=== PATIENT | male | born 1940 | race Caucasian/White ===

== ENCOUNTER 2020-03-27 09:03 | Inpatient (IN) | payer OTHER ==
[~2020-03-27] VITALS: Ht 188 cm; Wt 85.5 kg
[2020-03-27] VITALS (10 sets, daily range): BP systolic 105–126; BP diastolic 54–90; BMI 19.9
[2020-03-27 10:43] LABS: BASOPHILS 0.1 % (0-2); EOSINOPHILS 0 % (0-7); HEMATOCRIT 49.9 % (42.0-54.0); HEMOGLOBIN 15.5 g/dL (13.5-17.5); IMMATURE GRANULOCYTES 0.7 % (0-5); LYMPHOCYTES 6.6 % (15-50); MCH 31.1 pg (26.0-34.0); MCHC 31.1 g/dL (31.0-37.0); MCV 100.2 fL (80.0-100.0); MEAN PLATELET VOLUME 12.4 fL (7.4-10.4); NEUTROPHILS 88.6 % (40-80); PLATELET COUNT 215 10x3/uL (130-400); RBC 4.98 10x6/uL (4.20-6.10); RDW 13.7 % (11.5-14.5)
[2020-03-27 10:52] LABS: INR 1.5 (0.85-1.17)
[2020-03-27 10:54] LABS: CALCIUM 9.2 mg/dL (8.5-10.1); CARBON DIOXIDE 26.1 mmol/L (21.0-32.0); CHLORIDE - SERUM 104 mmol/L (98-107); CREATININE - SERUM 2.6 mg/dL (0.6-1.3); POTASSIUM - SERUM 4.8 mmol/L (3.5-5.1); SODIUM 145 mmol/L (136-145); eGFR NON AFRICAN AMERICAN 25 mL/min (90-120)
[2020-03-27 11:12] LABS: ALBUMIN 2.7 g/dL (3.4-5.0); ALKALINE PHOSPHATASE 80 U/L (30-120); ALT (SGPT) 17 U/L (10-68); BILIRUBIN - TOTAL 0.95 mg/dL (0.2-1.3); CKMB 2.4 U/L (0.0-3.6); CREATINE KINASE 62 UL (21-232); PROTEIN - SERUM 7.4 g/dL (6.4-8.2)
[2020-03-27 11:13] LABS: CALC OSMOLALITY 359 mosm/kg (275-300)
[2020-03-27 11:29] LABS: GLUCOSE 784 mg/dL (74-106); UREA NITROGEN 105 mg/dL (7-18)
--- NOTE | 2020-03-27 11:32 | NUR ---
CRITICAL LAB: BUN 105, TROPONIN 0.27 GLUCOSE 784 [address] 3.2 DR MAXWELL AND APRIL, RN NOTIFIED
[2020-03-27 11:42] LABS: BILIRUBIN NEGATIVE (NEGATIVE); KETONE NEGATIVE (NEGATIVE); NITRITE NEGATIVE (NEGATIVE); UROBILINOGEN NORMAL mg/dL (< 2)
[2020-03-27 11:46] LABS: AMORPHOUS SEDIMENT <1+ LPF (NONE SEEN); BACTERIA MODERATE HPF (NONE SEEN)
[2020-03-27 11:47] LABS: WHITE CELLS - URINE 0-5 HPF (0-1)
--- NOTE | 2020-03-27 15:47 | NUR ---
20 G R FA IV X 1 ATTEMPT STARTED BY JESUS MACHADO.
[2020-03-27 18:11] LABS: CKMB 4.8 U/L (0.0-3.6); CREATINE KINASE 156 UL (21-232)
[2020-03-27 23:23] LABS: CKMB 5.1 U/L (0.0-3.6); CREATINE KINASE 160 UL (21-232)
[2020-03-27 23:27] LABS: CARBON DIOXIDE 30.2 mmol/L (21.0-32.0); CREATININE - SERUM 2.4 mg/dL (0.6-1.3)
[2020-03-27 23:29] LABS: ANION GAP 12.5 mmol/L (8-16); POTASSIUM - SERUM 3.7 mmol/L (3.5-5.1); TROPONIN-I 0.546 ng/mL (0.000-0.060)
[2020-03-28] VITALS (17 sets, daily range): BP systolic 92–141; BP diastolic 69–91; BMI 21.0
[2020-03-28 05:29] LABS: HEMATOCRIT 47.5 % (42.0-54.0); HEMOGLOBIN 15.2 g/dL (13.5-17.5); LYMPHOCYTES 5.7 % (15-50); MEAN PLATELET VOLUME 12.6 fL (7.4-10.4); NEUTROPHILS 89.3 % (40-80); PLATELET COUNT 199 10x3/uL (130-400); RBC 4.91 10x6/uL (4.20-6.10); RDW 13.6 % (11.5-14.5); WBC 11.2 10x3/uL (4.8-10.8)
[2020-03-28 05:32] LABS: MCV 96.7 fL (80.0-100.0)
[2020-03-28 05:40] LABS: ALBUMIN 2.3 g/dL (3.4-5.0); ALKALINE PHOSPHATASE 60 U/L (30-120); ALT (SGPT) 18 U/L (10-68); BILIRUBIN - TOTAL 0.65 mg/dL (0.2-1.3); CALCIUM 8.1 mg/dL (8.5-10.1); CKMB 4.4 U/L (0.0-3.6); CREATINE KINASE 142 UL (21-232); CREATININE - SERUM 2.3 mg/dL (0.6-1.3); LDH 507 U/L (85-227); PROTEIN - SERUM 5.8 g/dL (6.4-8.2); SODIUM 155 mmol/L (136-145); eGFR NON AFRICAN AMERICAN 29 mL/min (90-120)
[2020-03-28 06:06] LABS: C-REACTIVE PROTEIN 16.8 mg/dL (0.0-0.9)
[2020-03-28 06:08] LABS: CALC OSMOLALITY 348 mosm/kg (275-300); FERRITIN 1831 ng/mL (3-244); GLUCOSE 248 mg/dL (74-106); POTASSIUM - SERUM 4.8 mmol/L (3.5-5.1); TROPONIN-I 0.389 ng/mL (0.000-0.060)
[2020-03-28 06:09] LABS: CHLORIDE - SERUM 118 mmol/L (98-107); UREA NITROGEN 109 mg/dL (7-18)
--- NOTE | 2020-03-28 07:19 | NUR ---
CONSULTED DR ROLAND PER DR CHAVEZ. INFORMED [facility] ON LAB. NO NEW ORDERS AT THIS TIME.
[2020-03-29] VITALS (23 sets, daily range): BP systolic 101–1124; BP diastolic 60–91; Ht 188 cm; Wt 85.5 kg
[2020-03-29 04:22] LABS: BASOPHILS 0.1 % (0-2); EOSINOPHILS 0 % (0-7); HEMOGLOBIN 15.7 g/dL (13.5-17.5); IMMATURE GRANULOCYTES 0.4 % (0-5); LYMPHOCYTES 3.3 % (15-50); MCH 31.2 pg (26.0-34.0); MCV 97.4 fL (80.0-100.0); MEAN PLATELET VOLUME 12.4 fL (7.4-10.4); MONOCYTES 2.4 % (2-11); NEUTROPHILS 93.8 % (40-80); PLATELET COUNT 236 10x3/uL (130-400); RBC 5.03 10x6/uL (4.20-6.10)
[2020-03-29 04:33] LABS: WBC 14.7 10x3/uL (4.8-10.8)
[2020-03-29 04:55] LABS: ALBUMIN 2.6 g/dL (3.4-5.0); BILIRUBIN - TOTAL 0.71 mg/dL (0.2-1.3); CALCIUM 9.7 mg/dL (8.5-10.1); CARBON DIOXIDE 27.5 mmol/L (21.0-32.0); POTASSIUM - SERUM 4.5 mmol/L (3.5-5.1)
[2020-03-29 05:41] LABS: CREATININE - SERUM 3.4 mg/dL (0.6-1.3); PROTEIN - SERUM 7.5 g/dL (6.4-8.2)
--- NOTE | 2020-03-29 05:59 | NUR ---
RECEIVED CRITICAL LAB BUN CL NA. DR CHAVEZ MADE AWARE. NEW ORDER OF 1/2NS AT 100ML/HR AND NEPHROLOGY CONSULT RECEIVED.
--- NOTE | 2020-03-29 07:13 | NUR ---
DR HAMEED MADE AWARE OF THE CONSULT
--- NOTE | 2020-03-29 09:08 | EC ---
PATIENT:KAMERON HALL DATE OF SERVICE: 03/27/20 SEX: M MEDICAL RECORD: [id number] DATE OF : 40 LOCATION:[facility] AGE OF PATIENT: 79 ADMISSION DATE: 03/27/20 REFERRING PHYSICIAN: INTERPRETING PHYSICIAN: TI ROLAND MD ECHOCARDIOGRAM REPORT ECHO CHARGES 4 ECHO COMPLETE Date: 03/28/20 CLINICAL DIAGNOSIS: SOB ECHOCARDIOGRAPHIC MEASUREMENTS (adult normal given) AC root (d.<3.7cm) 3.6 cm LV Septum d (<1.2 cm> 1.6 cm Valve Excursion cm LV Septum (systole) 2.0 cm Left Atria (s.<4.0cm> 5.3 cm LVPW d(<1.2cm) 1.4 cm RV (d.<2.3cm) 4.2 cm LVPW (sytole) 1.7 cm LV diastole(<5.6CM) 4.8 cm MV E-F(>70mm/sec) cm LV systole 4.0 cm LVOT Diameter 2.0 cm MV exc.(>10mm) cm Est.ejection fraction (50-75%) 30 % DOPPLER: LVIT cm/sec A cm/sec E cm/sec LA cm/sec RVSP 29 mmHg LVOT cm/sec AOP1/2T m/s Asc. Ao cm/sec RVOT cm/sec RA cm/sec PA cm/sec AV Gradient Peak mmHg AV Mean mmHg AV Area cm MV Gradient Peak mmHg MV Mean mmHg MV Area cm COMMENTS: Make Ready Mechanic: Rn Ortho: 3 Dr. Sarmiento TAPE# PACS Pericardial Effusion N DATE OF SERVICE: 03/28/2020 Adequate 2D, color flow imaging, spectral Doppler, and M-Mode. LVH is present. LV internal dimensions are normal. LV is mildly globally hypo with EF mildly reduced 30% to 35%. Aortic valve is tricuspid. No evidence of stenosis by Doppler interrogation. Left atrium is dilated at 5.3. 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 Right-sided chambers are grossly normal. Mild TR. 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
[2020-03-29 12:46] LABS: CALCIUM 8.2 mg/dL (8.5-10.1); CARBON DIOXIDE 25.4 mmol/L (21.0-32.0); CREATININE - SERUM 3.2 mg/dL (0.6-1.3)
[2020-03-29 12:53] LABS: ANION GAP 17.6 mmol/L (8-16)
--- NOTE | 2020-03-29 12:54 | NUR ---
Nutrition Follow-up: Pt in droplet isolation; covid-19+. On bipap. Remains NPO. Wt: 164.2# (03/29) Labs noted: Na 160, Glu 225, Alb 2.6 Meds noted: Humalog, Lantus, Pepcid, 1/2NS @ 100 -If pt to remain NPO, rec consider nutrition support as medically feasible. -RD following.
--- NOTE | 2020-03-29 15:11 | NUR ---
FIO2 45%
[2020-03-29 20:06] LABS: CARBON DIOXIDE 20.6 mmol/L (21.0-32.0); CREATININE - SERUM 2.8 mg/dL (0.6-1.3)
[2020-03-29 20:10] LABS: ANION GAP 15.6 mmol/L (8-16); POTASSIUM - SERUM 3.2 mmol/L (3.5-5.1)
[2020-03-29 20:12] LABS: CALCIUM 6.7 mg/dL (8.5-10.1)
--- NOTE | 2020-03-29 23:41 | NUR ---
PT DAUGHTER CALLED, PASSWORD PROVIDED, UPDATE GIVEN AND ALL QUESTIONS ANSWERED.
[2020-03-30] VITALS (24 sets, daily range): BP systolic 102–125; BP diastolic 57–83
[2020-03-30 04:11] LABS: ANION GAP 15.3 mmol/L (8-16); CALCIUM 9.1 mg/dL (8.5-10.1); CARBON DIOXIDE 26.5 mmol/L (21.0-32.0); POTASSIUM - SERUM 3.8 mmol/L (3.5-5.1)
--- NOTE | 2020-03-30 07:00 | NUR ---
LETHERGIC. RESPONSE TO PAINFUL STIMUL. ON BIPAP 08/01 AT 45%.IV LEFT WRIST INFUSING WITH 1/2 NS AT 125 ML HOUR. GUERRERO CATH PATENT DARK JOSE URINE IN GUERRERO BAG. MONITOR SR WITH OCC PVC AND PAC. HEAD OF BED ELEVATED 30 DEGREES.
--- NOTE | 2020-03-30 09:51 | NUR ---
FAMILY UPDATE ON PATIENT
[2020-03-30 15:08] LABS: ANION GAP 19.3 mmol/L (8-16); CALCIUM 8.7 mg/dL (8.5-10.1); CARBON DIOXIDE 22.9 mmol/L (21.0-32.0); CREATININE - SERUM 2.9 mg/dL (0.6-1.3); MAGNESIUM - SERUM 2.5 mg/dL (1.8-2.4); POTASSIUM - SERUM 4.2 mmol/L (3.5-5.1)
--- NOTE | 2020-03-30 18:00 | NUR ---
BIPAP AT 40% . NO CHANGE IN MENTAL STATUS. IV PATENT. URINE STILL DARK JOSE
--- NOTE | 2020-03-30 19:32 | NUR ---
PT DAUGHTER CALLED, PASSWORD PROVIDED, UPDATE GIVEN.
[2020-03-31] VITALS (24 sets, daily range): BP systolic 112–137; BP diastolic 68–82
[2020-03-31 09:36] LABS: BASOPHILS 0.1 % (0-2); EOSINOPHILS 0.9 % (0-7); HEMATOCRIT 42.1 % (42.0-54.0); IMMATURE GRANULOCYTES 0.4 % (0-5); LYMPHOCYTES 4.2 % (15-50); MCH 30.4 pg (26.0-34.0); MCHC 30.9 g/dL (31.0-37.0); MCV 98.6 fL (80.0-100.0); MEAN PLATELET VOLUME 12.3 fL (7.4-10.4); MONOCYTES 3.2 % (2-11); NEUTROPHILS 91.2 % (40-80); RBC 4.27 10x6/uL (4.20-6.10); RDW 14.5 % (11.5-14.5); WBC 10.5 10x3/uL (4.8-10.8)
[2020-03-31 09:38] LABS: PLATELET COUNT 187 10x3/uL (130-400)
[2020-03-31 09:58] LABS: ALBUMIN 1.9 g/dL (3.4-5.0); ANION GAP 13.5 mmol/L (8-16); BILIRUBIN - TOTAL 0.62 mg/dL (0.2-1.3); CALCIUM 8.9 mg/dL (8.5-10.1); CARBON DIOXIDE 25.1 mmol/L (21.0-32.0); CREATININE - SERUM 2.9 mg/dL (0.6-1.3); MAGNESIUM - SERUM 2.7 mg/dL (1.8-2.4); PHOSPHOROUS 3.1 mg/dL (2.5-4.9); POTASSIUM - SERUM 3.6 mmol/L (3.5-5.1); PROTEIN - SERUM 6.5 g/dL (6.4-8.2)
[2020-03-31 18:37] LABS: ANION GAP 15.2 mmol/L (8-16); CALCIUM 8.3 mg/dL (8.5-10.1); CARBON DIOXIDE 23.5 mmol/L (21.0-32.0); CREATININE - SERUM 2.7 mg/dL (0.6-1.3); POTASSIUM - SERUM 3.7 mmol/L (3.5-5.1)
[2020-04-01] VITALS (25 sets, daily range): BP systolic 108–144; BP diastolic 68–91
[2020-04-01 05:14] LABS: ANION GAP 11.1 mmol/L (8-16); CALCIUM 8.2 mg/dL (8.5-10.1); CARBON DIOXIDE 27.4 mmol/L (21.0-32.0); CREATININE - SERUM 2.4 mg/dL (0.6-1.3); MAGNESIUM - SERUM 2.4 mg/dL (1.8-2.4); PHOSPHOROUS 3.2 mg/dL (2.5-4.9); POTASSIUM - SERUM 3.5 mmol/L (3.5-5.1)
[2020-04-01 05:20] LABS: BASOPHILS 0.1 % (0-2); EOSINOPHILS 1.7 % (0-7); HEMATOCRIT 41.1 % (42.0-54.0); HEMOGLOBIN 12.7 g/dL (13.5-17.5); IMMATURE GRANULOCYTES 0.4 % (0-5); LYMPHOCYTES 4.1 % (15-50); MCH 30.7 pg (26.0-34.0); MCHC 30.9 g/dL (31.0-37.0); MCV 99.3 fL (80.0-100.0); MEAN PLATELET VOLUME 12.7 fL (7.4-10.4); MONOCYTES 3.3 % (2-11); NEUTROPHILS 90.4 % (40-80); PLATELET COUNT 184 10x3/uL (130-400); RBC 4.14 10x6/uL (4.20-6.10); RDW 14.5 % (11.5-14.5); WBC 8.5 10x3/uL (4.8-10.8)
--- NOTE | 2020-04-01 12:28 | NUR ---
Nutrition follow-up: Pt continues NPO; unresponsive BIPAP in place Labs reviewed Per airconditioning engineer, renal function is improving with good urine output at this time Will need nutrition support started when medically feasible RDN following.
[2020-04-02] VITALS (24 sets, daily range): BP systolic 106–134; BP diastolic 56–87
[2020-04-02 05:15] LABS: BASOPHILS 0.1 % (0-2); EOSINOPHILS 1.5 % (0-7); HEMATOCRIT 42.6 % (42.0-54.0); HEMOGLOBIN 12.9 g/dL (13.5-17.5); IMMATURE GRANULOCYTES 0.4 % (0-5); LYMPHOCYTES 5.1 % (15-50); MCH 30.4 pg (26.0-34.0); MCHC 30.3 g/dL (31.0-37.0); MCV 100.2 fL (80.0-100.0); MEAN PLATELET VOLUME 12.7 fL (7.4-10.4); MONOCYTES 3.5 % (2-11); NEUTROPHILS 89.4 % (40-80); PLATELET COUNT 164 10x3/uL (130-400); RBC 4.25 10x6/uL (4.20-6.10); RDW 14.3 % (11.5-14.5); WBC 8.2 10x3/uL (4.8-10.8)
[2020-04-02 05:31] LABS: ANION GAP 11.9 mmol/L (8-16); CALCIUM 8.5 mg/dL (8.5-10.1); CARBON DIOXIDE 27.5 mmol/L (21.0-32.0); PHOSPHOROUS 3.3 mg/dL (2.5-4.9); POTASSIUM - SERUM 3.4 mmol/L (3.5-5.1)
--- NOTE | 2020-04-02 06:55 | NUR ---
Pt resting in bed, no acute distress noted. Pt was bathed and cleaned and changed. Assessment per flow sheet, BiPap on, call light in reach, bed in low position.
--- NOTE | 2020-04-02 14:56 | NUR ---
Nutrition Follow-up: Received consult from Dr. Solitario to start ProcalAmine or NGT feedings. Patient still with BiPAP in place so unable to NGT feed at this time. Will start ProCalamine @ 50mL/hr. This will provide: 294cal and 35gms protein and meets only ~15% of calorie needs and ~50% of protein needs. Long-term patient will need more nutrition. RD following.
[2020-04-03] VITALS (23 sets, daily range): BP systolic 90–129; BP diastolic 59–93
[2020-04-03 05:01] LABS: ANION GAP 13.6 mmol/L (8-16); BASOPHILS 0.1 % (0-2); CALCIUM 8.3 mg/dL (8.5-10.1); CARBON DIOXIDE 25.6 mmol/L (21.0-32.0); CREATININE - SERUM 1.9 mg/dL (0.6-1.3); EOSINOPHILS 1.2 % (0-7); IMMATURE GRANULOCYTES 0.4 % (0-5); LYMPHOCYTES 5.1 % (15-50); MCH 30.8 pg (26.0-34.0); MCHC 31.6 g/dL (31.0-37.0); MEAN PLATELET VOLUME 12.7 fL (7.4-10.4); MONOCYTES 1.9 % (2-11); NEUTROPHILS 91.3 % (40-80); PLATELET COUNT 159 10x3/uL (130-400); POTASSIUM - SERUM 3.2 mmol/L (3.5-5.1); RBC 3.89 10x6/uL (4.20-6.10); RDW 13.8 % (11.5-14.5)
[2020-04-03 05:02] LABS: MCV 97.7 fL (80.0-100.0); WBC 10.9 10x3/uL (4.8-10.8)
[2020-04-03 05:09] LABS: PHOSPHOROUS 2.4 mg/dL (2.5-4.9)
--- NOTE | 2020-04-03 13:23 | NUR ---
Nutrition Follow-up: Pt in droplet isolation; covid-19+. Bipap. Procal @ 50 mL/hr started yesterday. Diet: NPO Wt: 175.25# (04/03) Labs noted: Na 151, K+ 3.2, Glu 256, Ca 8.3, PO4 2.4 Meds noted: Lantus, Humalog, Pepcid, D5W @ 125 -Currently receiving Procal; if continues to need nutrition support, will need something more substantial. -RD following.
[2020-04-04] VITALS (24 sets, daily range): BP systolic 105–128; BP diastolic 69–90
[2020-04-04 04:33] LABS: BASOPHILS 0.1 % (0-2); EOSINOPHILS 1.3 % (0-7); HEMATOCRIT 33.1 % (42.0-54.0); HEMOGLOBIN 10.6 g/dL (13.5-17.5); IMMATURE GRANULOCYTES 0.4 % (0-5); LYMPHOCYTES 4.6 % (15-50); MCH 30.4 pg (26.0-34.0); MEAN PLATELET VOLUME 12.1 fL (7.4-10.4); MONOCYTES 2.4 % (2-11); NEUTROPHILS 91.2 % (40-80); PLATELET COUNT 167 10x3/uL (130-400); RBC 3.49 10x6/uL (4.20-6.10); RDW 13.8 % (11.5-14.5); WBC 11.4 10x3/uL (4.8-10.8)
[2020-04-04 04:47] LABS: ANION GAP 13.5 mmol/L (8-16); CALCIUM 8.1 mg/dL (8.5-10.1); CARBON DIOXIDE 20.7 mmol/L (21.0-32.0); CREATININE - SERUM 1.6 mg/dL (0.6-1.3); MCV 94.8 fL (80.0-100.0); POTASSIUM - SERUM 3.2 mmol/L (3.5-5.1)
--- NOTE | 2020-04-04 10:11 | NUR ---
ZITHROMAX STOPPED AT 1131 ON 03/27/20.
--- NOTE | 2020-04-04 10:58 | NUR ---
INTUBATED PER DR. LUNA BY ANESTHESIA. SIZE 8 TUBE PLACED 23 AT LIP. XR PENDING. FAMILY NOTIFIED PRIOR TO INTUBATING.
--- NOTE | 2020-04-04 12:00 | NUR ---
DR. CAMPO SEES PT DURING ROUNDS. ORDERS RECEIVED. POTASSIUM TO BE REPLETED PER OGT AFTER XR PLACEMENT CONFIRMS IT. AWAITING CVL PLACEMENT BEFORE XR ORDERS ENTERED. OBTAINED CONSENT PER FOR CVL.
[2020-04-05] VITALS (24 sets, daily range): BP systolic 87–149; BP diastolic 46–101
[2020-04-05 11:19] LABS: BASOPHILS 0.1 % (0-2); EOSINOPHILS 0.1 % (0-7); HEMATOCRIT 36.2 % (42.0-54.0); HEMOGLOBIN 11.4 g/dL (13.5-17.5); IMMATURE GRANULOCYTES 0.6 % (0-5); LYMPHOCYTES 3.5 % (15-50); MCH 30.6 pg (26.0-34.0); MCHC 31.5 g/dL (31.0-37.0); MEAN PLATELET VOLUME 12.3 fL (7.4-10.4); MONOCYTES 3.5 % (2-11); NEUTROPHILS 92.2 % (40-80); PLATELET COUNT 196 10x3/uL (130-400); RBC 3.73 10x6/uL (4.20-6.10); RDW 13.6 % (11.5-14.5)
[2020-04-05 11:25] LABS: WBC 17.4 10x3/uL (4.8-10.8)
[2020-04-05 11:27] LABS: MCV 97.1 fL (80.0-100.0)
[2020-04-05 11:29] LABS: ALBUMIN 1.4 g/dL (3.4-5.0); ANION GAP 15.7 mmol/L (8-16); BILIRUBIN - TOTAL 0.39 mg/dL (0.2-1.3); CALCIUM 8.3 mg/dL (8.5-10.1); CARBON DIOXIDE 19.8 mmol/L (21.0-32.0); PROTEIN - SERUM 6.2 g/dL (6.4-8.2)
[2020-04-05 11:31] LABS: CREATININE - SERUM 2.1 mg/dL (0.6-1.3); POTASSIUM - SERUM 5.5 mmol/L (3.5-5.1)
--- NOTE | 2020-04-05 13:01 | NUR ---
Nutrition Follow-up: Pt in droplet isolation; covid-19+. Intubated yesterday. Per pulm, plans for OGT and TF. Receiving Procal @ 50. Wt: 178# (04/04) Labs noted: K+ 5.5, Glu 129, Ca 8.3, Alb 1.4 Meds noted: Diprivan, Lantus, Humalog, Florajen, Pepcid, D5W @ 50 -Rec Suplena @ goal rate of 45 mL/hr when medically feasible then d/c Procal. -RD following.
[2020-04-06] VITALS (47 sets, daily range): BP systolic 62–113; BP diastolic 37–65
[2020-04-06 06:03] LABS: BASOPHILS 0.2 % (0-2); EOSINOPHILS 0.1 % (0-7); HEMATOCRIT 38.2 % (42.0-54.0); HEMOGLOBIN 11.7 g/dL (13.5-17.5); IMMATURE GRANULOCYTES 0.5 % (0-5); LYMPHOCYTES 4.8 % (15-50); MCH 30.2 pg (26.0-34.0); MCHC 30.6 g/dL (31.0-37.0); MCV 98.7 fL (80.0-100.0); MEAN PLATELET VOLUME 11.7 fL (7.4-10.4); MONOCYTES 3.9 % (2-11); NEUTROPHILS 90.5 % (40-80); PLATELET COUNT 180 10x3/uL (130-400); RBC 3.87 10x6/uL (4.20-6.10); RDW 13.8 % (11.5-14.5); WBC 16.1 10x3/uL (4.8-10.8)
[2020-04-06 06:45] LABS: ALBUMIN 1.4 g/dL (3.4-5.0); BILIRUBIN - TOTAL 0.52 mg/dL (0.2-1.3); CALCIUM 8.4 mg/dL (8.5-10.1); CREATININE - SERUM 2.1 mg/dL (0.6-1.3)
--- NOTE | 2020-04-06 07:59 | NUR ---
SPOKE WITH DR SÁNCHEZ REGARDING LABS. ORDERS RECIEVED FOR 12O LASIX IV X 1.
--- NOTE | 2020-04-06 11:00 | NUR ---
PER DR SCOTT MOORE.
--- NOTE | 2020-04-06 11:04 | NUR ---
GUERRERO LEAKING, NOTED THERE IS QUITE A BIT OF SEDIMENT TO GUERRERO; GUERRERO FLUSHED WITH 20ML SALINE. URINE VISUALIZED FLOWING INTO CLOSED CONTAINER.
--- NOTE | 2020-04-06 13:56 | NUR ---
NOTED PTS PULSE OX HAS DECREASED TO THE 70S%, FIO2 INCREASED TO 100%. OXYGEN SATURATION INCREASED TO 82% CALLED PTS AND UPDATED.
--- NOTE | 2020-04-06 14:55 | NUR ---
PATIENT AT 1445. SPOUSE NOTIFIED. FAMILY DECLINES TO COME TO HOSPITAL. FAMILY REQUEST THAT [facility] BE NOTIFIED. DR CHAVEZ STATES HE WILL COME TO [place].
--- NOTE | 2020-04-06 16:34 | NUR ---
BODY OF PT PICKED UP BY [facility] AT THIS TIME. POSTMORTEM CARE HAS BEEN PERFORMED. NO PERSONAL ITEMS NOTED. WAS DECLINED FROM DIETRICH FOR SEPSIS, SEE RECORD OF . NO FURTHER ACTIONS.
== END 2020-04-06 16:35 | DRG 871 ==
LOC: D.ER 09:03 → EDBD 10:49 → D.ICU 10:49
PROVIDERS: Family Medicine; Internal Medicine; Internal Medicine Nephrology; Internal Medicine Pulmonary Disease; ADMIT Family Medicine; ATTEND Family Medicine
PROC: 0BH18EZ Insertion of Endotracheal Airway into Trachea, Via Natural or Artificial Opening Endoscopic (ICD-10-PCS; principal; 2020-04-04)
PROC: 5A1945Z Respiratory Ventilation, 24-96 Consecutive Hours (ICD-10-PCS; 2020-04-04)
PROC: 05HM33Z Insertion of Infusion Device into Right Internal Jugular Vein, Percutaneous Approach (ICD-10-PCS; 2020-04-04)
DX: A41.89 Other specified sepsis (principal); E11.00 Type 2 diabetes mellitus with hyperosmolarity without nonketotic hyperglycemic-hyperosmolar coma (NKHHC); U07.1 COVID-19; E11.10 Type 2 diabetes mellitus with ketoacidosis without coma; J12.89 Other viral pneumonia; R65.21 Severe sepsis with septic shock; N17.0 Acute kidney failure with tubular necrosis; I63.9 Cerebral infarction, unspecified; I50.23 Acute on chronic systolic (congestive) heart failure; J96.01 Acute respiratory failure with hypoxia; G93.41 Metabolic encephalopathy; E87.2 Acidosis; I13.0 Hypertensive heart and chronic kidney disease with heart failure and stage 1 through stage 4 chronic kidney disease, or unspecified chronic kidney disease; N18.4 Chronic kidney disease, stage 4 (severe); E87.0 Hyperosmolality and hypernatremia; R41.82 Altered mental status, unspecified; R77.8 Other specified abnormalities of plasma proteins; E11.65 Type 2 diabetes mellitus with hyperglycemia; E11.22 Type 2 diabetes mellitus with diabetic chronic kidney disease; F41.8 Other specified anxiety disorders; M19.90 Unspecified osteoarthritis, unspecified site; E06.3 Autoimmune thyroiditis; E03.8 Other specified hypothyroidism; K21.9 Gastro-esophageal reflux disease without esophagitis; F01.50 Vascular dementia, unspecified severity, without behavioral disturbance, psychotic disturbance, mood disturbance, and anxiety; E78.5 Hyperlipidemia, unspecified; E88.09 Other disorders of plasma-protein metabolism, not elsewhere classified; Z66 Do not resuscitate